=== PATIENT | male | born 1980 | race Caucasian/White ===

== ENCOUNTER 2023-05-08 13:08 | Emergency (ER) | payer OTHER ==
[~2023-05-08] VITALS: Ht 175.3 cm; Wt 56.7 kg
[2023-05-08 14:36] VITALS: BP_SYST 129; PULSE 122; RESP 16; TEMP 97.9; O2SAT 96
[2023-05-08] MEDS ORDERED: ACETAMINOPHEN 500 MG TABLET PO ONE (17:15)
[2023-05-08] MEDS ORDERED: IBUPROFEN 600 MG TABLET PO ONE (17:15)
[2023-05-08] MEDS ORDERED: LIDOCAINE VISCOUS 2%, 15 ML UDC MM ONE (17:30)
[2023-05-08 17:46] LABS: BASOPHILS % (AUTO) 0.5 % (0.0-2.0); EOSINOPHILS # (AUTO) 0.1 K/uL (0.0-0.4); EOSINOPHILS % (AUTO) 1.5 % (0.0-4.0); HEMATOCRIT 46.6 % (36-54); HEMOGLOBIN 16.2 g/dL (14.0-18.0); LYMPHOCYTES % (AUTO) 20.5 % (20.5-51.5); MEAN CORPUSCULAR HEMOGLOBIN 32 pg (27-31); MEAN CORPUSCULAR HGB CONC 35 % (32-36); MEAN CORPUSCULAR VOLUME 92 fL (79.0-98.0); NEUTROPHILS # (AUTO) 6.3 K/uL (1.8-7.7); NEUTROPHILS % (AUTO) 66.5 % (40.0-70.0); PLATELET COUNT (AUTO) 279 K/uL (130-430); RED BLOOD CELL COUNT(AUTO) 5.08 MIL/uL (4.2-6.2); RED CELL DISTRIBUTION WIDTH 13.2 % (9.0-15.0); WHITE BLOOD COUNT (AUTO) 9.5 K/uL (4.8-10.8)
[2023-05-08 17:57] LABS: CALCIUM 9.8 mg/dL (8.4-11.0); CREATININE 0.95 mg/dL (0.55-1.30); POTASSIUM 4.2 mmol/L (3.5-5.1)
[2023-05-08] MEDS ORDERED: LIDOCAINE/EPI 1% 1:100000 20 ML VIAL INJ ONE (23:30)
[2023-05-09] MEDS ORDERED: VANCOMYCIN HCL 1,000 MG in NS 250 ML IV ONE ×2
[2023-05-09] MEDS ORDERED: KETOROLAC TROMETHAMINE 30 MG VIAL IVP ONE
[2023-05-09] MEDS ORDERED: VANCOMYCIN HCL 1000 MG/VIAL IV ONE (00:12)
[2023-05-09 01:14] VITALS: BP_SYST 130; PULSE 109; RESP 18; TEMP 99.3; O2SAT 96
== END 2023-05-09 01:14 | disposition home or self-care (01) ==
LOC: SED 13:08
DX: M27.2 Inflammatory conditions of jaws (principal); R51.9 Headache, unspecified; F17.200 Nicotine dependence, unspecified, uncomplicated; Z79.899 Other long term (current) drug therapy
CPT/HCPCS: 99285; 70486; 80048; 85025; 87040; 36415; 76376; 96365; 96375; J2001; J1885; J3370